=== PATIENT | male | born 1945 | race Caucasian/White ===

== ENCOUNTER 2019-07-23 11:22 | Observation (INO) ==
[2019-07-23] MEDS ORDERED: NORCO-5 PO PRN (12:20)
[2019-07-23] MEDS ORDERED: PHENERGAN PO PRN (12:20)
[2019-07-23] MEDS ORDERED: MORPHINE IV PRN (12:20)
[2019-07-23] MEDS ORDERED: ZOFRAN IV PRN ×2 (12:20→12:23)
[2019-07-23] MEDS ORDERED: NORCO-7.5 PO PRN (12:23)
[2019-07-23] MEDS ORDERED: TYLENOL PO PRN (12:23)
[2019-07-23] MEDS ORDERED: LOVENOX SUBQ SCH (12:30)
--- NOTE | 2019-07-23 12:48 | EKG Report ---
Test Performed on : 07/23/2019 12:36:39 PM Test Reason : afib Blood Pressure : / mmHG Vent. Rate : 073 BPM Atrial Rate : 073 BPM P-R Int : 192 ms QRS Dur : 102 ms QT Int : 386 ms P-R-T Axes : 070 070 056 degrees QTc Int : 425 ms Normal sinus rhythm. Normal ECG No previous ECGs available Confirmed by Alexis Stuart MD ([id number]) on 07/26/2019 9:22:20 AM
--- NOTE | 2019-07-23 13:08 | HISTORY AND PHYSICAL ---
HISTORY OF PRESENT ILLNESS: Mr. Montanez had carpal tunnel surgery done on his right wrist and apparently had some nausea and some aspiration, was slow to extubate. He appears comfortable now, breathing comfortably, we are going to put him in for observation. PAST MEDICAL HISTORY: Pretty unremarkable. He has had, I think, abdominal ventral hernia repair. He had a hip that was fractured, and an open reduction and internal fixation. Then recently, his carpal tunnel. He denies any really other medical problems or history. ALLERGIES: No known drug allergies. FAMILY HISTORY: No significant family history. Denies significant cardiac, respiratory, or renal problems. SOCIAL HISTORY: He denies alcohol or tobacco. He is a former [employer] driver. REVIEW OF SYSTEMS: General: No weight gain or loss. No fever or chills. HEENT: Unremarkable. Respiratory: No increased work of breathing or dyspnea. Cardiovascular: No chest pain or tachy palpitations. Gastrointestinal and Genitourinary: No complaints. Endocrinologic/Hematologic: No significant history. PHYSICAL EXAMINATION: VITAL SIGNS: Temperature 98.1 degrees, pulse 70, respirations 18, blood pressure 149/73. O2 saturation was 100%. His weight is 224 pounds. HEENT: Pupils are equal and round. LUNGS: Clear in all lung stephen. CARDIOVASCULAR EXAMINATION: Regular rhythm and rate without murmur or S3. ASSESSMENT AND PLAN: 1. I think he had a little nausea and some aspiration during his anesthesia and procedure for carpal tunnel. He looks like he is breathing and clearing everything well. I do not see any evidence of a bacterial pneumonia. I will watch him tonight. Hopefully, he can go home in the morning. 2. Status post right carpal tunnel repair. REVIEW OF ALL HIS LAB: I think the lab is pending at this time. We will make sure we get a chest x-ray and will go for an EKG. cc: Alban Perez MD
--- NOTE | 2019-07-23 13:41 | CARDIOLOGY CONSULTATION ---
DATE: 07/23/2019 HISTORY OF PRESENT ILLNESS: Mr. Bradly Montanez is a 74-year-old gentleman who underwent carpal tunnel surgery. Postoperatively, he was noted to have atrial fibrillation. Prior to that, he was in sinus rhythm. He was transferred from outpatient surgery and admitted to CICU. When he came here, electrocardiogram was done. He is in sinus rhythm. Cardiology was consulted. The patient does not complain of palpitations. There is no history of any dizziness or syncope. He does not have anginal symptoms. However, he had symptoms of GERD after eating yesterday at home. There is no exertional component of chest pain. There is no orthopnea, paroxysmal nocturnal dyspnea. He has otherwise been active. REVIEW OF SYSTEMS: A 14-point review of systems was done.Gastrointestinal System: There is no history of nausea, vomiting, diarrhea. There is no history of hematemesis or melena. Central Nervous System: No focal weakness to suggest a CVA or TIA. Genitourinary System: There is no dysuria or hematuria. Respiratory System: There is no history of cough, expectoration, hemoptysis. There is no history of fevers or chills. PAST MEDICAL HISTORY: 1. Hypertension. 2. Hypothyroidism. 3. Benign prostatic hypertrophy. 4. Hypothyroidism. 5. He has had fracture of his right leg. HOME MEDICATIONS: Atorvastatin 10, hydrochlorothiazide 25, levothyroxine 75 mcg a day, lisinopril 20 mg a day, tamsulosin, and prednisone. PHYSICAL EXAMINATION: Vital Signs: Blood pressure was 149/78. Neck: Jugular venous pressure was normal. Cardiac: First and second heart sounds were heard. There was no S3 gallop. Respiratory System: Normal air entry. There are no crepitations or rhonchi. Abdomen: Soft, obese, nontender. There was no guarding or rigidity. Bowel sounds were heard. Central Nervous System: Alert and was moving all 4 extremities. Extremities: Examination of extremities revealed no pedal edema. He had a bandage on the right hand and up to his wrist following his recent carpal tunnel surgery done today. ASSESSMENT AND PLAN: Mr. Bradly Monatnez is a 74-year-old gentleman with a history of hyperlipidemia, hypertension, and hypothyroidism who postoperatively was in atrial fibrillation, subsequently admitted. He is currently in sinus rhythm. RECOMMENDATIONS: 1. He has no cardiac history as described above. We will get an echocardiogram to assess cardiac and valvular function. 2. All his laboratory work in addition to cardiac enzymes, CBC, BMP, and thyroid profile are pending. 3. As far as medications are concerned, would recommend aspirin, and we will start him on low- dose beta-blockers 25 mg twice daily. Continue lisinopril for hypertension, 4. For hypothyroidism, we will check a TSH and continue with the levothyroxine at 75. 5. Atorvastatin he takes for hyperlipidemia. We will continue that. 6. He has an elevated CHADS2-VASc score. I have not anticoagulated him given his recent carpal tunnel surgery done today. If all his lab work is unremarkable, we will plan to discharge him home on aspirin, and I will see him back in the office in a couple of weeks. Thank you for the consultation. We will follow hospital course. cc: Neel Ibsell MD
--- NOTE | 2019-07-23 14:13 | Diag Imaging Result Doc PS360 ---
CHEST-2 VIEWS - 07/23/2019 INDICATION: poss. aspiration COMPARISON: None FINDINGS: The lungs are normally expanded and clear. Heart size and mediastinal contours are normal. No pneumothorax or pleural effusion. IMPRESSION: Negative exam. Electronically signed by Jad Martin 07/23/2019 2:11 PM
[2019-07-23 17:00] LABS: BASO# 0.06 X1000 (0.0-0.2); BASO% 0.9 % (0.0-0.8); EOS# 0.38 X1000 (0.0-0.7); EOS% 5.7 % (0.0-10.0); HEMATOCRIT 44.8 % (42.0-52.0); HEMOGLOBIN 14.7 g/dL (14.0-18.0); IMM GRAN% 4.5 % (0.0-0.5); LYMPH# 1.71 X1000 (1.2-3.4); LYMPH% 25.8 % (20.5-51.1); MCH 29.9 PG (27-31); MCHC 32.8 g/dL (33-37); MCV 91.2 FL (81-99); MONO# 0.58 X1000 (0.11-0.59); MONO% 8.8 % (1.7-9.3); MPV 10.4 FL (7.4-10.4); NEUT# 3.59 X1000 (1.4-6.5); NEUT% 54.3 % (42.2-75.2); PLT 150 X1000 (130-400); RBC 4.91 XMIL (4.7-6.1); RDW 13.3 % (11.5-14.5); WBC 6.62 X1000 (4.8-10.8)
[2019-07-23 17:12] LABS: AGAP 9; ALB/GLOB RATIO 1.2; ALBUMIN 3.6 g/dL (3.5-5.0); ALKALINE PHOSPHATASE 57 U/L (32-122); BUN 14 mg/dL (8-22); CALCIUM 9.2 mg/dL (8.8-10.2); CHLORIDE 104 mmol/L (98-107); COSMO 282; CREATININE 0.9 mg/dL (0.7-1.2); ESTIMATED GFR > 60; GLUCOSE 98 mg/dL (70-104); GOT 22 U/L (10-34); GPT 25 U/L (10-44); POTASSIUM 4.4 mmol/L (3.5-5.1); SODIUM 141 mmol/L (136-145); TCO2 28 mmol/L (25-35); TOTAL BILIRUBIN 0.62 mg/dL (0.20-1.00); TOTAL PROTEIN 6.6 g/dL (6.3-8.3)
[2019-07-23 17:24] LABS: INR 1.15; PROTIME 14.9 Seconds (11.0-16.0)
[2019-07-23 17:25] LABS: PTT 30.9 Seconds (22.3-41.8)
[2019-07-23 17:32] LABS: FREE T4 1.24 ng/dL (0.93-1.70)
[2019-07-23 17:51] LABS: MAGNESIUM 1.9 mg/dL (1.5-2.7)
[2019-07-23 18:00] LABS: URINE SOURCE CLEAN CATCH
[2019-07-23 18:20] LABS: BILIRUBIN URINE NEGATIVE (NEGATIVE); BLOOD URINE NEGATIVE (NEGATIVE); COLOR YELLOW; GLUCOSE URINE NEGATIVE (NEGATIVE); KETONE URINE NEGATIVE (NEGATIVE); LEUKOCYTES URINE NEGATIVE (NEGATIVE); NITRITE URINE NEGATIVE (NEGATIVE); PROTEIN URINE 30 mg/dL (NEGATIVE); SP GRAVITY URINE 1.028; TURBIDITY URINE CLEAR (CLEAR); UROBILINOGEN URINE NORMAL (NORMAL)
[2019-07-23 18:21] LABS: UR EPITHELIAL CELLS <10 /HPF (<10); URINE BACTERIA NEGATIVE /HPF; URINE RBC <10 /HPF (<10); URINE WBC <10 /HPF (<10)
[2019-07-23] MEDS: LOPRESSOR PO SCH (20:39)
[2019-07-23] MEDS ORDERED: LIPITOR PO SCH (21:00)
--- NOTE | 2019-07-23 22:29 | ECHO REPORT ---
ORDER DATE: 07/23/2019 MEASUREMENTS: Septal thickness 1.5. Left ventricular internal diameter in diastole 4.3. Posterior wall thickness 1.4. Left ventricular internal diameter in systole 3.0. Aortic root 3.5. Left atrium 2.6. SUMMARY: 1. Technically difficult study due to limited acoustic window quality. 2. Aortic valve is trileaflet and opens normally on 2-dimensional images. Peak gradient across aortic valve is less than 5 mmHg. Mitral and tricuspid valves are without evidence of structural abnormality, while pulmonic valve is not well demonstrated. The aortic root is normal in size. 3. Normal left ventricular chamber size with mild to moderate concentric left hypertrophy is demonstrated. The estimated left ejection fraction appears to be at least 60%. No regional wall abnormalities evident. Left atrium, right atrium, right ventricle are normal in size with grossly preserved right ventricular systolic function. 4. No pericardial effusion. 5. Appearance of inferior vena cava suggests normal central venous pressure. cc: MD Patience Berkowitz CRNP
[2019-07-24] MEDS ORDERED: SYNTHROID PO SCH (07:00)
[2019-07-24 07:04] LABS: BASO# 0.06 X1000 (0.0-0.2); BASO% 0.9 % (0.0-0.8); EOS# 0.36 X1000 (0.0-0.7); EOS% 5.5 % (0.0-10.0); IMM GRAN# 0.02 X1000 (0.0-0.04); IMM GRAN% 0.3 % (0.0-0.5); MCH 30.1 PG (27-31); MCHC 32.6 g/dL (33-37); MCV 92.5 FL (81-99); MONO# 0.56 X1000 (0.11-0.59); MONO% 8.5 % (1.7-9.3); MPV 10.6 FL (7.4-10.4); NEUT# 3.85 X1000 (1.4-6.5); NEUT% 58.8 % (42.2-75.2); PLT 139 X1000 (130-400); RBC 4.65 XMIL (4.7-6.1); RDW 13.4 % (11.5-14.5); WBC 6.55 X1000 (4.8-10.8)
[2019-07-24 07:30] LABS: AGAP 10; ALB/GLOB RATIO 1.2; ALBUMIN 3.4 g/dL (3.5-5.0); ALKALINE PHOSPHATASE 55 U/L (32-122); BUN 13 mg/dL (8-22); CALCIUM 8.8 mg/dL (8.8-10.2); CHLORIDE 105 mmol/L (98-107); COSMO 283; CREATININE 0.9 mg/dL (0.7-1.2); ESTIMATED GFR > 60; GLUCOSE 95 mg/dL (70-104); GOT 22 U/L (10-34); GPT 23 U/L (10-44); MAGNESIUM 1.9 mg/dL (1.5-2.7); POTASSIUM 4.2 mmol/L (3.5-5.1); SODIUM 142 mmol/L (136-145); TCO2 27 mmol/L (25-35); TOTAL BILIRUBIN 0.84 mg/dL (0.20-1.00); TOTAL PROTEIN 6.2 g/dL (6.3-8.3)
[2019-07-24 07:33] VITALS: BP 118/59
--- NOTE | 2019-07-24 07:34 | EKG Report ---
Test Performed on : 07/24/2019 06:07:51 AM Test Reason : afib Blood Pressure : / mmHG Vent. Rate : 069 BPM Atrial Rate : 069 BPM P-R Int : 198 ms QRS Dur : 098 ms QT Int : 388 ms P-R-T Axes : 071 070 050 degrees QTc Int : 415 ms Normal sinus rhythm. Normal ECG When compared with ECG of 23-JUL-2019 12:36, (Unconfirmed) No significant change was found Confirmed by Narciso JIMNEEZ, Alexis Fernandez ([id number]) on 07/26/2019 9:22:39 AM
[2019-07-24] MEDS ORDERED: ASPIRIN PO SCH (09:00)
[2019-07-24] MEDS ORDERED: LOVENOX SUBQ SCH (09:00)
[2019-07-24] MEDS: LOPRESSOR PO SCH (09:34)
--- NOTE | 2019-07-24 10:17 | DISCHARGE SUMMARY ---
ADMISSION DATE: 07/23/2019 DISCHARGE DATE: 07/24/2019 This is a 74-year-old who is a patient of [facility]. He was here, had surgery for carpal tunnel on his right wrist and apparently had some nausea. They thought he might have aspirated. They also note he went into some atrial fibrillation for a short time and they were slow to extubate, so they wanted to admit him and watch him. He was put in up at [facility]. He was stable, awake, alert, and oriented. Breathing comfortably and had no problems through the night. Dr. Isbell, the information security, has evaluated. He is going to follow up as an outpatient. He remained in sinus rhythm and hemodynamically stable. DISCHARGE MEDICINES: Lipitor 10 mg at bedtime, [place] 5 mg 1 q.4 hours p.r.n. pain. I will give him 20 of them. Synthroid 75 mcg a day, Lopressor 25 mg b.i.d. He is on aspirin 81 mg a day, hydrochlorothiazide 25 mg a day, Synthroid 75 mcg a day, lisinopril 20 mg at bedtime, Flomax 0.4 mg at bedtime. INSTRUCTIONS: He will follow up with Dr. Juarez. Follow up with Dr. Isbell. We let him go home. cc: Alban Perez MD
== END 2019-07-24 11:29 | disposition home or self-care (01) ==
LOC: DIRADM 11:22 → SUATTDRO 11:22 → INTOOBSV 11:22 → 2N 12:18
PROVIDERS: ATTEND Emergency Medicine